=== PATIENT | female | born 1965 | race Caucasian/White ===

== ENCOUNTER → 2016-07-21 | Outpatient (CLI) | payer BC ==
--- NOTE | 2016-07-22 10:13 | MM ---
Reason for exam: screening (asymptomatic). Last mammogram was performed 3 years and 9 months ago. History: Patient is postmenopausal. Took hormonal contraceptives for 10 years. Physical Findings: A clinical breast exam by your physician is recommended on an annual basis and results should be correlated with mammographic findings. MG Screening Mammo w CAD Bilateral CC and MLO view(s) were taken. Prior study comparison: October 22, 2012, CAD bilateral diagnostic mammogram. May 18, 2011, [facility] DIGITAL RIGHT MAMMOGRAM w/CAD. The breast tissue is extremely dense which could obscure a lesion on mammography. Benign calcifications are stable. There is no discrete abnormality. No significant changes when compared with prior studies. ASSESSMENT: Benign, BI-RAD 2 RECOMMENDATION: Routine screening mammogram of both breasts in 1 year.
== END | disposition home or self-care (01) ==
LOC: RADMAMWWP 07:01
PROVIDERS: ATTEND Obstetrics & Gynecology
DX: Z12.31 Encounter for screening mammogram for malignant neoplasm of breast (principal)

== ENCOUNTER → 2017-02-16 | Outpatient (CLI) | payer BC ==
--- NOTE | 2017-02-17 05:33 | EST ---
EXERCISE STRESS Date of Service: AGE:: 51 SEX:: Female HT:: 66" WT:: 190 pounds PROTOCOL:: Nicolas. STAGE:: III DURATION OF EXERCISE:: 7 minutes HEART RATE REST:: 59 BLOOD PRESSURE REST:: 130/80 MAXIMUM HEART RATE ACHIEVED:: 148 MAXIMUM BLOOD PRESSURE:: 168/82 85% MPHR:: 144 100% MPHR:: 169 METS:: 8.5 INDICATIONS:: Chest pain. CLINICAL INFORMATION:: Mrs. Almazan is a 51-year-old female with history of chest pain and family history of ischemic heart disease being evaluated for cardiac status. STRESS DATA: Baseline EKG showed a sinus rhythm with normal [place] interval and QRS duration. Blood pressure at rest is 130/80 with a pulse rate of 59. Patient walked on the Nicolas protocol for about 7 minutes achieving a maximum heart rate of 148 with blood pressure of 168/82. EKGs taken during and after exercise did not reveal any significant changes from the baseline. FINAL IMPRESSION: 1. Negative stress test. 2. Patient did not experience chest pain. 3. Good exercise capacity. 4. No arrhythmias were detected. MMODL / IJN: [id number] /
== END | disposition home or self-care (01) ==
LOC: RADNMMAIN 11:05
PROVIDERS: ATTEND Internal Medicine
DX: R07.9 Chest pain, unspecified (principal)
CPT/HCPCS: 93017

== ENCOUNTER 2017-04-28 08:31 | Day surgery (SDC) | payer BC ==
[2017-04-26 13:28] VITALS: BMI 30.5
[~2017-04-28 08:31] MED LIST: LIDOCAINE 1% 20 ML VIAL (10MG/ML) FOR IV START INTRADERMA PRN
[2017-04-28] MEDS: LACTATED RINGERS 1,000 ML IV SCH ×2 (08:57→09:49)
[2017-04-28 09:04] VITALS: TEMP 98.4
[2017-04-28] MEDS ORDERED: PROPOFOL 10 MG/ML 20 ML VIAL IV ONE (09:49)
--- NOTE | 2017-04-28 10:13 | P.PCN ---
Date of Procedure: 04/28/17 Procedure(s) Performed: BRIEF HISTORY: Patient is a 52-year-old pleasant white female, scheduled for an elective colonoscopy as part of screening for colorectal neoplasia. PROCEDURE PERFORMED: Colonoscopy with biopsy. PREOPERATIVE DIAGNOSIS: Screening for colon cancer. IV sedation per Anesthesia. PROCEDURE: After informed consent was obtained, the patient, was brought into the endoscopy unit. IV sedation was administered by Anesthesia under continuous monitoring. Digital rectal examination was normal. Initially the Olympus CF- 160 flexible video colonoscope was then inserted in the rectum, gradually advanced into the cecum without any difficulty. Careful examination was performed as the scope was gradually being withdrawn. Ileocecal valve and the appendiceal orifice were visualized and appeared normal. Prep was excellent. Mucosa of the cecum, ascending colon, appeared normal. In the ascending colon there was a 5 mm polyp that was removed by biopsy. In the hepatic flexure there was another 5 mm polyp that was removed by biopsy. The rest of the transverse colon, descending colon, sigmoid colon, and rectum appeared normal. Retroflexion was performed in the rectum and no lesions were seen. The patient tolerated the procedure well. IMPRESSION: 5 mm ascending colon polyp status post removal by biopsy. 5 mm hepatic flexure polyp serous post-removal by biopsy Rest of the colon appeared normal RECOMMENDATIONS: Findings of this examination were discussed with the patient as well as a family. She was advised to follow with the biopsy results. If the biopsy shows a tubular adenoma she can have a repeat colonoscopy in 5 years.
[2017-04-28 10:16] VITALS: RESP 16
[2017-04-28 10:27] VITALS: BP 142/68; PULSE 61
== END 2017-04-28 10:54 | disposition home or self-care (01) ==
LOC: ORWHC2ENDO 08:31
PROVIDERS: ATTEND Internal Medicine Gastroenterology
DX: Z12.11 Encounter for screening for malignant neoplasm of colon (principal); D12.2 Benign neoplasm of ascending colon; D12.3 Benign neoplasm of transverse colon; Z79.899 Other long term (current) drug therapy
CPT/HCPCS: 45380; 88305; J2704

== ENCOUNTER → 2019-07-30 | Outpatient (CLI) | payer BC ==
--- NOTE | 2019-07-30 10:35 | MM ---
Reason for exam: screening (asymptomatic). Last mammogram was performed 3 years ago. History: Patient is postmenopausal. Took hormonal contraceptives for 10 years. Physical Findings: A clinical breast exam by your physician is recommended on an annual basis and results should be correlated with mammographic findings. MG Screening Mammo w CAD Bilateral CC and MLO view(s) were taken. Prior study comparison: July 21, 2016, bilateral MG screening mammo w CAD. October 22, 2012, CAD bilateral diagnostic mammogram. The breast tissue is heterogeneously dense. This may lower the sensitivity of mammography. There is no discrete abnormality. No significant changes when compared with prior studies. ASSESSMENT: Negative, BI-RAD 1 RECOMMENDATION: Routine screening mammogram of both breasts in 1 year.
== END | disposition home or self-care (01) ==
LOC: RADMAMWWP 07:04
PROVIDERS: ATTEND Internal Medicine
DX: Z12.31 Encounter for screening mammogram for malignant neoplasm of breast (principal)
CPT/HCPCS: 77067

== ENCOUNTER → 2022-05-17 | Outpatient (CLI) | payer BC ==
--- NOTE | 2022-05-18 08:28 | MM ---
Reason for Exam: Screening (asymptomatic). Last mammogram was performed 2 year(s) and 9 month(s) ago. Patient History: Menarche at age 13. First Full-Term at age 27. Postmenopausal. Patient used Hormonal Contraceptives for 10 years. Risk Values: Nubia 5 year model risk: 1.4%. NCI Lifetime model risk: 8.7%. Prior Study Comparison: 10/22/2012 Bilateral Diagnostic Mammogram, [facility]. 07/21/2016 Bilateral Screening Mammogram, [facility]. 07/30/2019 Bilateral Screening Mammogram, [facility]. Tissue Density: The breast tissue is heterogeneously dense. This may lower the sensitivity of mammography. Findings: Analyzed By CAD. There is no suspicious group of microcalcifications or new suspicious mass in either breast. Overall Assessment: Benign, BI-RAD 2 Management: Screening Mammogram of both breasts in 1 year. A clinical breast exam by your physician is recommended on an annual basis and results should be correlated with mammographic findings. Electronically signed and approved by: Adonis Scott M.D. Radiologis
== END | disposition home or self-care (01) ==
LOC: RADMAMWWP 07:31
PROVIDERS: ATTEND Obstetrics & Gynecology
DX: Z12.31 Encounter for screening mammogram for malignant neoplasm of breast (principal); Z78.0 Asymptomatic menopausal state
CPT/HCPCS: 77063; 77067

== ENCOUNTER → 2023-10-24 | Outpatient (CLI) | payer BC ==
--- NOTE | 2023-10-30 15:07 | MM ---
Reason for Exam: Screening (asymptomatic). Last mammogram was performed 1 year(s) and 6 month(s) ago. Patient History: Menarche at age 13. First Full-Term at age 27. Postmenopausal. Patient used Hormonal Contraceptives for 10 years. Risk Values: Nubia 5 year model risk: 1.5%. NCI Lifetime model risk: 8.5%. Prior Study Comparison: 07/21/2016 Bilateral Screening Mammogram, [facility]. 07/30/2019 Bilateral Screening Mammogram, [facility]. 05/17/2022 Bilateral MG 3D screening mammo w/cad, [facility]. Tissue Density: The breasts are heterogeneously dense, which may obscure small masses. Findings: Right breast: There is no suspicious group of microcalcifications or new suspicious mass. Left breast: There is no suspicious group of microcalcifications or new suspicious mass. Right breast: There is no suspicious group of microcalcifications or new suspicious mass. Left breast: Asymmetry left breast anterior depth lateral aspect on CC view 4.7 cm from nipple. Overall Assessment: Incomplete: need additional imaging evaluation, BI-RAD 0 Management: Diagnostic Mammogram of the left breast. [facility] will attempt to contact patient to return for supplemental views and ultrasound if indicated. Patient should continue monthly self-breast exams. A clinical breast exam by your physician is recommended on an annual basis. This exam should not preclude additional follow-up of suspicious palpable abnormalities. Note on Nubia scores and lifetime risk: 1. A Nubia score greater than 3% is considered moderate risk. If this is the case, consider specialist referral to assess eligibility for a risk reducing agent. 2. If overall lifetime risk for the development of breast cancer is 20% or higher, the patient may qualify for future screening with alternating mammogram and breast MRI. Electronically signed and approved by: Piyush Cardoso DO
== END | disposition home or self-care (01) ==
LOC: RADMAMWWP 11:53
PROVIDERS: ATTEND Family Medicine
DX: Z12.31 Encounter for screening mammogram for malignant neoplasm of breast (principal); Z78.0 Asymptomatic menopausal state
CPT/HCPCS: 77063; 77067

== ENCOUNTER → 2023-11-03 | Outpatient (CLI) | payer BC ==
--- NOTE | 2023-11-03 08:33 | USB ---
Reason for Exam: Additional evaluation requested from abnormal screening. Patient History: Menarche at age 13. First Full-Term at age 27. Postmenopausal. Patient used Hormonal Contraceptives for 10 years. Risk Values: Nubia 5 year model risk: 1.5%. NCI Lifetime model risk: 8.5%. Technique: Method: Targeted. Prior Study Comparison: 07/30/2019 Bilateral Screening Mammogram, [facility]. 05/17/2022 Bilateral MG 3D screening mammo w/cad, [facility]. 10/24/2023 Bilateral MG 3D screening mammo w/cad, [facility]. Findings: The upper section of the breast of the left breast, the axilla of the left breast and the retroareolar of the left breast were scanned. Targeted ultrasound superior aspect of left breast 10:00 to 2:00 including scanning of the subareolar region and axilla. Dense tissue is present throughout. Small cystic areas measuring up to 6 mm interspersed throughout the dense breast tissue suggesting fibrocystic change. Prominent but nonenlarged left axillary lymph node measuring 2.2 x 0.7 x 0.8 cm probably reactive/post inflammatory. No other solid or cystic lesion. Overall Assessment: Probably benign, BI-RAD 3 Management: Diagnostic Mammogram of the left breast in 6 months. A clinical breast exam by your physician is recommended on an annual basis and results should be correlated with mammographic findings. This exam should not preclude additional follow-up of suspicious palpable abnormalities. Results were given to the patient verbally at the time of exam. Electronically signed and approved by: Napoleon Drake M.D. Radiologist
--- NOTE | 2023-11-03 09:52 | MM ---
Reason for Exam: Additional evaluation requested from abnormal screening. Last screening mammogram was performed less than 1 month ago. Patient History: Menarche at age 13. First Full-Term at age 27. Postmenopausal. Patient used Hormonal Contraceptives for 10 years. Risk Values: Nubia 5 year model risk: 1.5%. NCI Lifetime model risk: 8.5%. Prior Study Comparison: 07/21/2016 Bilateral Screening Mammogram, [facility]. 07/30/2019 Bilateral Screening Mammogram, [facility]. 05/17/2022 Bilateral MG 3D screening mammo w/cad, [facility]. 10/24/2023 Bilateral MG 3D screening mammo w/cad, [facility]. Tissue Density: Left: The breasts are heterogeneously dense, which may obscure small masses. Findings: Analyzed By CAD. The questioned medial area of asymmetric density improves on additional views. However, there is a newly apparent area of persistent nodularity superiorly in the breast on the 3-D lateral view measuring approximately 9 mm. Further ultrasound evaluation recommended. Overall Assessment: Incomplete: need additional imaging evaluation, BI-RAD 0 Management: Diagnostic Breast Ultrasound of the left breast. 10:00 to 2:00 superiorly. Electronically signed and approved by: Napoleon Drake M.D. Radiologist
== END | disposition home or self-care (01) ==
LOC: RADMAMWWP 06:56
PROVIDERS: ATTEND Family Medicine
DX: R92.332 Mammographic heterogeneous density, left breast (principal); Z78.0 Asymptomatic menopausal state
CPT/HCPCS: 77061; 77065

== ENCOUNTER → 2024-10-24 | Outpatient (CLI) | payer BC ==
--- NOTE | 2024-10-25 09:29 | MM ---
Reason for Exam: Screening (asymptomatic). Last screening mammogram was performed 12 month(s) ago. Patient History: Menarche at age 13. First Full-Term at age 27. Postmenopausal. Patient used Hormonal Contraceptives for 10 years. Risk Values: Nubia 5 year model risk: 1.5%. NCI Lifetime model risk: 8.3%. Prior Study Comparison: 05/17/2022 Bilateral MG 3D screening mammo w/cad, [facility]. 10/24/2023 Bilateral MG 3D screening mammo w/cad, [facility]. 11/03/2023 Left MG 3D work up w/cad , [facility]. Tissue Density: The breasts are heterogeneously dense, which may obscure small masses. Findings: Analyzed By CAD. Right breast: There is no suspicious group of microcalcifications or new suspicious mass. Stable benign architectural distortion in the right outer aspect back to at least 05/17/2022. Left breast: There is no suspicious group of microcalcifications or new suspicious mass. Stable benign architectural distortion left breast lateral aspect enhancement LCC view. Overall Assessment: Negative, BI-RAD 1 Management: Screening Mammogram of both breasts in [address] [facility] will attempt to contact patient to return for supplemental views and ultrasound if indicated. Patient should continue monthly self-breast exams. A clinical breast exam by your physician is recommended on an annual basis. This exam should not preclude additional follow-up of suspicious palpable abnormalities. Note on Nubia scores and lifetime risk: 1. A Nubia score greater than 3% is considered moderate risk. If this is the case, consider specialist referral to assess eligibility for a risk reducing agent. 2. If overall lifetime risk for the development of breast cancer is 20% or higher, the patient may qualify for future screening with alternating mammogram and breast MRI. [facility], , 10/25/2024 9:25 AM. Electronically signed and approved by: Piyush Cardoso DO
== END | disposition home or self-care (01) ==
LOC: RADMAMWWP 15:37
PROVIDERS: ATTEND Family Medicine
DX: Z12.31 Encounter for screening mammogram for malignant neoplasm of breast (principal); R92.333 Mammographic heterogeneous density, bilateral breasts; Z78.0 Asymptomatic menopausal state; Z92.0 Personal history of contraception
CPT/HCPCS: 77063; 77067